=== PATIENT | female | born 1960 | race Caucasian/White ===

== ENCOUNTER 2018-08-28 17:12 | Observation (INO) | payer BC, SELFPAY ==
[2018-08-28 17:27] VITALS: BP 162/93; PULSE 104; RESP 19; TEMP 38.3; O2SAT 96; BMI 30.7
[2018-08-28 17:31] LABS: Microscopic, Urine URINE MICROSCOPIC (MICROSCOPIC)
--- NOTE | 2018-08-28 17:35 | CT_ITS ---
CT abdomen pelvis w con CLINICAL INDICATION: Right flank pain ITS.REASON: abdomen pain ORDERING PHYSICIAN: Beny Terrazas MD PATIENT AGE: 58 years COMPARISON: 03/21/2007 TECHNIQUE: Axial images obtained with sagittal and coronal reformats. All CT scans at the facility use one or more dose reduction, viz: automated exposure control, ma/kV adjustment per patient size (including targeted exams where dose is matched to indication, i.e. head), or iterative reconstruction technique. PROCEDURE: Oral Contrast: None IV Contrast: 75 mL Omnipaque 350. FINDINGS: There are stable noncalcified nodules in the lung bases. The liver, gallbladder, pancreas, adrenal glands, and kidneys have an unremarkable appearance. No renal or ureteral calculi. No hydronephrosis. There are multiple isodense lesions of the spleen measuring up to 2 cm. Some of these were present on the previous exam. There is a small hiatal hernia. No intestinal obstruction or free air. No evidence of appendicitis. There is colonic diverticulosis no evidence of diverticulitis. There has been a prior hysterectomy. No acute bony anomalies. There is a small right inguinal hernia containing fat. IMPRESSION: 1. No acute finding. 2. Colonic diverticulosis. No evidence of diverticulitis. 3. Multiple isodense splenic lesions. Differential diagnosis would include lymphangiomas, hemangiomas, or metastasis.
[2018-08-28 17:41] LABS: Appearance,Urine CLEAR (Clear); Bilirubin,Urine Negative (Negative); Blood, Urine Negative (Negative); Color,Urine YELLOW (Yellow); Glucose,Urine (UA) Negative (Negative); Ketones,Urine Negative (Negative); Leukocyte Esterase,Urine Negative (Negative); Nitrate,Urine Negative (Negative); PH,Urine 6.5 (5.0-8.5); Protein,Urine Negative (Negative); Urobilinogen,Urine 0.2 EU/dl (0.2)
[2018-08-28 17:49] LABS: Bacteria,Urine Trace /lpf; Squamous Epithelial Cell,Urine Occasional #/hpf (0-5); WBC,Urine Occasional #/hpf (0-3)
[2018-08-28 17:50] VITALS: BP 160/88; PULSE 102; O2SAT 97
[2018-08-28 18:20] LABS: Basophils % 0.5 % (0.1-2.0); Eosinophils % 0.6 % (0.1-12.0); Hematocrit 38.8 % (37.0-47.0); Hemoglobin 13.2 g/dL (12.2-16.2); Lymphocytes # 0.3 K/mm3 (0.7-4.5); Lymphocytes % 11.5 % (10-50); Mean Corpuscular HGB Conc 34.1 g/dL (31.8-35.4); Mean Corpuscular Volume 88.1 fl (81-99); Mean Platelet Volume 7.4 fl (7.4-10.4); Monocytes # 0.2 K/mm3 (0.1-1.0); Monocytes % 5.7 % (1.7-9.3); Neutrophils # 2.3 K/mm3 (1.8-7.8); Neutrophils % 81.7 % (37.0-80.0); Platelet Count 114 K/mm3 (142-424); Red Cell Distribution Width 13.8 % (11.5-17.5); White Blood Count 2.8 K/mm3 (4.8-10.8)
--- NOTE | 2018-08-28 18:29 | HMH.EDGENADL ---
ED Disposition Clinical Impression: Right lower quadrant abdominal pain, Splenic lesion, Splenomegaly, Cytopenia Disposition: Admitted as Observation Condition on Discharge: Fair Referrals: Terrie Nguyen APRN [Primary Care Provider] - - Critical Care Critical Care Time: No Attestation: On 08/28/18, the high probability of a clinically significant, sudden or life threatening deterioration of the following system(s) required my full and direct attention, intervention and personal management. The time I documented below is in addition to time spent performing reported procedures but includes the following listed in this critical care notation. Medical Decision Making - Brendan Inquiry Pt receiving controlled substance: No Vital Signs: 08/28/18 17:27 08/28/18 17:50 Temperature 100.9 F H Temperature Source Oral Pulse Rate [Left Radial] 104 H 102 H Respiratory Rate 19 Blood Pressure [Right Arm] 162/93 H 160/88 H Blood Pressure Mean [Right Arm] 116 112 Blood Pressure Source [Right Arm] Automatic Cuff Automatic Cuff Blood Pressure Position [Right Arm] Sitting Sitting 02 Sat by Pulse Oximetry 96 97 Oxygen Delivery Method Room Air - Lab Data Lab Results 08/28/18 17:28: Urine Color Yellow, Urine Appearance Clear, Urine pH 6.5, Ur Specific [place] 1.020, Urine Protein Negative, Urine Glucose (UA) Negative, Urine Ketones Negative, Urine Blood Negative, Urine Nitrate Negative, Urine Bilirubin Negative, Urine Urobilinogen 0.2, Ur Leukocyte Esterase Negative, Urine WBC Occasional, Ur Squamous Epith Cells Occasional, Urine Bacteria Trace 08/28/18 18:00: WBC 2.8 L, RBC 4.40, Hgb 13.2, Hct 38.8, MCV 88.1, MCH 30.0, MCHC 34.1, RDW 13.8, Plt Count 114 L, MPV 7.4, Neut % (Auto) 81.7 H, Lymph % (Auto) 11.5, [place] % (Auto) 5.7, Eos % (Auto) 0.6, Baso % (Auto) 0.5, Neut # (Auto) 2.3, Lymph # (Auto) 0.3 L, [place] # (Auto) 0.2, Eos # (Auto) 0.0, Baso # (Auto) 0.0 08/28/18 18:00: Sodium 140, Potassium 3.6, Chloride 106, Carbon Dioxide 26, Anion Gap 11.6, BUN 26 H, Creatinine 0.97, Estimated Creat Clear 84, Estimated GFR 59, Est GFR ( Amer) 71, Glucose 111 H, Calcium 8.5, Total Bilirubin 0.5, AST 14 L, ALT 28, Alkaline Phosphatase 80, Total Protein 7.5, Albumin 3.5, Globulin 4.0 H, Albumin/Globulin Ratio 0.9 L, Amylase 39, Lipase 122 08/28/18 18:30: Lactate 0.9 Result diagrams: 08/28/18 18:00 08/28/18 18:00 Orders (Tests/Meds): ED MEDICATIONS Generic Name Dose Route Start Last Admin Trade Name Freq PRN Reason Stop Dose Admin Sodium Chloride 1,000 mls @ 999 mls/hr 08/28/18 17:45 08/28/18 18:01 Sod Chlor 0.9% 1000ml Bag IV 08/28/18 18:45 999 mls/hr .[id number] LIAM Administration Discontinued Medications Generic Name Dose Route Start Last Admin Trade Name Freq PRN Reason Stop Dose Admin Acetaminophen 650 mg 08/28/18 17:37 08/28/18 18:01 Acetaminophen 325mg Tab PO 08/28/18 17:38 650 mg ONCE ONE Administration Ioversol 75 ml 08/28/18 18:54 08/28/18 18:55 Rad-Optiray 350 100ml Vial IV 08/28/18 18:55 75 ml ONCE ONE Administration Protocol Ketorolac Tromethamine 30 mg 08/28/18 17:36 08/28/18 18:01 Toradol 30mg/Ml Vial IV 08/28/18 17:37 30 mg ONCE ONE Administration Ondansetron HCl 4 mg 08/28/18 17:37 08/28/18 18:01 Zofran 4mg/2ml Vial IV 08/28/18 17:38 4 mg ONCE ONE Administration Sodium Chloride 10 ml 08/28/18 18:54 08/28/18 18:55 Rad-Saline Flush 10ml Syringe IV 08/28/18 18:55 10 ml ONCE ONE Administration ORDERS Category Date Time Status CT abdomen pelvis w con Stat Cat Scan 08/28/18 17:35 Taken Peripheral Smear Review Routine Lab 08/28/18 18:00 Received Blood Culture Stat Micro 08/28/18 17:41 Received - CT Data CT Scan: Abdomen, Pelvis Time Received: 19:[address] Reviewed: Yes: I have viewed the radiologist's interpretation Findings Narrative: CT scan interpreted by [facility] radiologist. Faxed report received and reviewed: Th
[2018-08-28 18:31] LABS: Alanine Aminotransferase 28 U/L (12-78); Albumin Level 3.5 gm/dL (3.4-5.0); Albumin/Globulin Ratio 0.9 (1.1-1.8); Alkaline Phosphatase 80 U/L (46-116); Amylase 39 U/L (25-115); Anion Gap 11.6 mEq/L (5-15); Aspartate Amino Transferase 14 U/L (15-37); Bilirubin,Total 0.5 mg/dL (0.2-1.0); Blood Urea Nitrogen 26 mg/dL (7-18); Calcium 8.5 mg/dL (8.5-10.1); Carbon Dioxide 26 mmol/L (21.0-32.0); Chloride 106 mmol/L (98-107); Creatinine Clearance Estimated 84 mL/min (50-200); Creatinine,Serum 0.97 mg/dL (0.55-1.02); Estimated Glomerular Filt Rate 59 ml/min (>60); GFR (African American) 71 ML/MIN (>60); Glucose 111 mg/dL (74-106); Lipase 122 u/L (73-393); Potassium 3.6 mmoL/L (3.5-5.1); Sodium 140 mmol/L (136-145); Total Protein,Serum 7.5 gm/dL (6.4-8.2)
[2018-08-28 18:53] LABS: Lactic Acid 0.9 mmol/L (0.4-2.0)
--- NOTE | 2018-08-28 19:27 | PC.NURSE ---
Dr Cannon paged
--- NOTE | 2018-08-28 19:29 | PC.NURSE ---
on phone with Kassandra
[2018-08-28 20:30] VITALS: BP 154/82; PULSE 98; RESP 19; O2SAT 97
--- NOTE | 2018-08-28 20:51 | HMH.GSHP ---
[facility] History Medical History: Denies:: Diabetes Mellitus Type 1, Diabetes Mellitus Type 2 - *Social History Alcohol Intake: current Alcohol Intake Frequency:: holidays/special occasions only *Occupational Status:: employed *Travel in the last 8 weeks: None - Psychiatric History Expresses thoughts of harming self/others: None Suicide Plan Description: No Plan Meds Home Medications Medication Instructions Recorded Confirmed Type Estrogens, Conjugated [Premarin] 0.625 mg PO DAILY 08/28/18 08/28/18 History Meloxicam 7.5 mg PO DAILY 08/28/18 08/28/18 History Tizanidine HCl [Tizanidine HCl 2 mg PO DAILY PRN 08/28/18 08/28/18 History 2mg] buPROPion HCl [Wellbutrin SR 150mg 150 mg PO DAILY 08/28/18 08/28/18 History Tablet] Allergies Allergy/AdvReac Type Severity Reaction Status Date / Time No Known Allergies Allergy Unverified 04/03/17 14:23 Exam Vital signs and Labs for Last 24 Hours: Temp Pulse Resp BP Pulse Ox 100.9 F H 102 H 19 160/88 H 97 08/28/18 17:27 08/28/18 17:50 08/28/18 17:27 08/28/18 17:50 08/28/18 17:50 Laboratory Results - last 24 hr 08/28/18 17:28: Urine Color Yellow, Urine Appearance Clear, Urine pH 6.5, Ur Specific [place] 1.020, Urine Protein Negative, Urine Glucose (UA) Negative, Urine Ketones Negative, Urine Blood Negative, Urine Nitrate Negative, Urine Bilirubin Negative, Urine Urobilinogen 0.2, Ur Leukocyte Esterase Negative, Urine WBC Occasional, Ur Squamous Epith Cells Occasional, Urine Bacteria Trace 08/28/18 18:00: WBC 2.8 L, RBC 4.40, Hgb 13.2, Hct 38.8, MCV 88.1, MCH 30.0, MCHC 34.1, RDW 13.8, Plt Count 114 L, MPV 7.4, Neut % (Auto) 81.7 H, Lymph % (Auto) 11.5, [place] % (Auto) 5.7, Eos % (Auto) 0.6, Baso % (Auto) 0.5, Neut # (Auto) 2.3, Lymph # (Auto) 0.3 L, [place] # (Auto) 0.2, Eos # (Auto) 0.0, Baso # (Auto) 0.0 08/28/18 18:00: Sodium 140, Potassium 3.6, Chloride 106, Carbon Dioxide 26, Anion Gap 11.6, BUN 26 H, Creatinine 0.97, Estimated Creat Clear 84, Estimated GFR 59, Est GFR ( Amer) 71, Glucose 111 H, Calcium 8.5, Total Bilirubin 0.5, AST 14 L, ALT 28, Alkaline Phosphatase 80, Total Protein 7.5, Albumin 3.5, Globulin 4.0 H, Albumin/Globulin Ratio 0.9 L, Amylase 39, Lipase 122 08/28/18 18:30: Lactate 0.9 I & O for Last 24 hours: Intake & Output 08/26/18 08/27/18 08/28/18 08/29/18 11:59 11:59 11:59 11:59 Weight 190 lb Results - Results Lab Results Last 24 Hours:: Laboratory Results - last 24 hr 08/28/18 17:28: Urine Color Yellow, Urine Appearance Clear, Urine pH 6.5, Ur Specific [place] 1.020, Urine Protein Negative, Urine Glucose (UA) Negative, Urine Ketones Negative, Urine Blood Negative, Urine Nitrate Negative, Urine Bilirubin Negative, Urine Urobilinogen 0.2, Ur Leukocyte Esterase Negative, Urine WBC Occasional, Ur Squamous Epith Cells Occasional, Urine Bacteria Trace 08/28/18 18:00: WBC 2.8 L, RBC 4.40, Hgb 13.2, Hct 38.8, MCV 88.1, MCH 30.0, MCHC 34.1, RDW 13.8, Plt Count 114 L, MPV 7.4, Neut % (Auto) 81.7 H, Lymph % (Auto) 11.5, [place] % (Auto) 5.7, Eos % (Auto) 0.6, Baso % (Auto) 0.5, Neut # (Auto) 2.3, Lymph # (Auto) 0.3 L, [place] # (Auto) 0.2, Eos # (Auto) 0.0, Baso # (Auto) 0.0 08/28/18 18:00: Sodium 140, Potassium 3.6, Chloride 106, Carbon Dioxide 26, Anion Gap 11.6, BUN 26 H, Creatinine 0.97, Estimated Creat Clear 84, Estimated GFR 59, Est GFR ( Amer) 71, Glucose 111 H, Calcium 8.5, Total Bilirubin 0.5, AST 14 L, ALT 28, Alkaline Phosphatase 80, Total Protein 7.5, Albumin 3.5, Globulin 4.0 H, Albumin/Globulin Ratio 0.9 L, Amylase 39, Lipase 122 08/28/18 18:30: Lactate 0.9
--- NOTE | 2018-08-28 21:00 | PC.NURSE ---
Allran in room with pt
--- NOTE | 2018-08-28 21:00 | PC.NURSE ---
dr. mendez at pt bedside at this time
[2018-08-28 21:04] VITALS: BP 147/97; PULSE 94; RESP 20; TEMP 36.8; O2SAT 98
--- NOTE | 2018-08-28 21:09 | HMH.GSCON ---
*Admission Date: 08/28/18 *Chief complaint: Abdominal pain *History of present illness: Patient is a pleasant 58-year-old white female who had presented to the emergency department with some abdominal pain. She states that Sunday evening on 08/25/2018 she had some pain in the right lower quadrant and right pelvic area. She has had some symptoms of low-grade fever. She is also had some chills and flushing. The pain has been intermittent however. She states that she has had a normal appetite but has had some exacerbation of the pain after eating. She denies any diarrhea. Denies vomiting. She had presented to the emergency department today with the symptoms. Interestingly she was found to have a white blood cell count of 2.8K. She underwent CT scan with intravenous contrast which was equivocal for appendicitis with nonvisualization of the appendix but no evidence of any inflammation or acute changes in the right lower quadrant. She did have some splenic lesions and splenomegaly noted. Review of Systems - Review of Systems Review of systems:: pertinent systems reviewed and negative unless documented below [facility] History Medical History: Denies:: Diabetes Mellitus Type 1, Diabetes Mellitus Type 2 *Have you ever received a pneumonia vaccine?: No *Have you received a flu vaccine this season?: No - *Social History Alcohol Intake: current Alcohol Intake Frequency:: holidays/special occasions only *Occupational Status:: employed *Travel in the last 8 weeks: None - Psychiatric History Expresses thoughts of harming self/others: None Suicide Plan Description: No Plan Family Hx:: Non-contributory Meds Home Medications Medication Instructions Recorded Confirmed Type Estrogens, Conjugated [Premarin] 0.625 mg PO DAILY 08/28/18 08/28/18 History Meloxicam 7.5 mg PO DAILY 08/28/18 08/28/18 History Tizanidine HCl [Tizanidine HCl 2 mg PO DAILY PRN 08/28/18 08/28/18 History 2mg] buPROPion HCl [Wellbutrin SR 150mg 150 mg PO DAILY 08/28/18 08/28/18 History Tablet] Allergies Allergy/AdvReac Type Severity Reaction Status Date / Time No Known Allergies Allergy Unverified 04/03/17 14:23 Exam Vital signs and Labs for Last 24 Hours: Temp Pulse Resp BP Pulse Ox 98.2 F 94 H 20 147/97 H 97 08/28/18 21:04 08/28/18 21:04 08/28/18 21:04 08/28/18 21:04 08/28/18 20:30 Laboratory Results - last 24 hr 08/28/18 17:28: Urine Color Yellow, Urine Appearance Clear, Urine pH 6.5, Ur Specific [place] 1.020, Urine Protein Negative, Urine Glucose (UA) Negative, Urine Ketones Negative, Urine Blood Negative, Urine Nitrate Negative, Urine Bilirubin Negative, Urine Urobilinogen 0.2, Ur Leukocyte Esterase Negative, Urine WBC Occasional, Ur Squamous Epith Cells Occasional, Urine Bacteria Trace 08/28/18 18:00: WBC 2.8 L, RBC 4.40, Hgb 13.2, Hct 38.8, MCV 88.1, MCH 30.0, MCHC 34.1, RDW 13.8, Plt Count 114 L, MPV 7.4, Neut % (Auto) 81.7 H, Lymph % (Auto) 11.5, [place] % (Auto) 5.7, Eos % (Auto) 0.6, Baso % (Auto) 0.5, Neut # (Auto) 2.3, Lymph # (Auto) 0.3 L, [place] # (Auto) 0.2, Eos # (Auto) 0.0, Baso # (Auto) 0.0 08/28/18 18:00: Sodium 140, Potassium 3.6, Chloride 106, Carbon Dioxide 26, Anion Gap 11.6, BUN 26 H, Creatinine 0.97, Estimated Creat Clear 84, Estimated GFR 59, Est GFR ( Amer) 71, Glucose 111 H, Calcium 8.5, Total Bilirubin 0.5, AST 14 L, ALT 28, Alkaline Phosphatase 80, Total Protein 7.5, Albumin 3.5, Globulin 4.0 H, Albumin/Globulin Ratio 0.9 L, Amylase 39, Lipase 122 08/28/18 18:30: Lactate 0.9 I & O for Last 24 hours: Intake & Output 08/26/18 08/27/18 08/28/18 08/29/18 11:59 11:59 11:59 11:59 Weight 190 lb - *Routine HEENT Exam Head: Present: normocephalic Eye: Present: EOMI, PERRL ENT: Present: mucous membranes moist - *Routine Neck Exam Present: supple. Absent: lymphadenopathy - *Routine Respiratory Exam Present: CTA bilaterally - *Routine Cardiovascular Exam Present: RRR - *Routine Abdomi
--- NOTE | 2018-08-28 21:10 | PC.NURSE ---
Notified nurse that is taking pt on floor that she can have clears until midnight then she is to be NPO for possible appy.
--- NOTE | 2018-08-28 21:13 | P.CONS_ITS ---
*Admission Date: 08/28/18 *Chief complaint: Abdominal pain *History of present illness: Patient is a pleasant 58-year-old white female who had presented to the emergency department with some abdominal pain. She states that Sunday evening on 08/25/2018 she had some pain in the right lower quadrant and right pelvic area. She has had some symptoms of low-grade fever. She is also had some chills and flushing. The pain has been intermittent however. She states that she has had a normal appetite but has had some exacerbation of the pain after eating. She denies any diarrhea. Denies vomiting. She had presented to the emergency department today with the symptoms. Interestingly she was found to have a white blood cell count of 2.8K. She underwent CT scan with intravenous contrast which was equivocal for appendicitis with nonvisualization of the appendix but no evidence of any inflammation or acute changes in the right lower quadrant. She did have some splenic lesions and splenomegaly noted. Review of Systems - Review of Systems Review of systems:: pertinent systems reviewed and negative unless documented below [facility] History Medical History: Denies:: Diabetes Mellitus Type 1, Diabetes Mellitus Type 2 *Have you ever received a pneumonia vaccine?: No *Have you received a flu vaccine this season?: No - *Social History Alcohol Intake: current Alcohol Intake Frequency:: holidays/special occasions only *Occupational Status:: employed *Travel in the last 8 weeks: None - Psychiatric History Expresses thoughts of harming self/others: None Suicide Plan Description: No Plan Family Hx:: Non-contributory Meds Home Medications Medication Instructions Recorded Confirmed Type Estrogens, Conjugated [Premarin] 0.625 mg PO DAILY 08/28/18 08/28/18 History Meloxicam 7.5 mg PO DAILY 08/28/18 08/28/18 History Tizanidine HCl [Tizanidine HCl 2 mg PO DAILY PRN 08/28/18 08/28/18 History 2mg] buPROPion HCl [Wellbutrin SR 150mg 150 mg PO DAILY 08/28/18 08/28/18 History Tablet] Allergies Allergy/AdvReac Type Severity Reaction Status Date / Time No Known Allergies Allergy Unverified 04/03/17 14:23 Exam Vital signs and Labs for Last 24 Hours: Temp Pulse Resp BP Pulse Ox 98.2 F 94 H 20 147/97 H 97 08/28/18 21:04 08/28/18 21:04 08/28/18 21:04 08/28/18 21:04 08/28/18 20:30 Laboratory Results - last 24 hr 08/28/18 17:28: Urine Color Yellow, Urine Appearance Clear, Urine pH 6.5, Ur Specific [place] 1.020, Urine Protein Negative, Urine Glucose (UA) Negative, Urine Ketones Negative, Urine Blood Negative, Urine Nitrate Negative, Urine Bilirubin Negative, Urine Urobilinogen 0.2, Ur Leukocyte Esterase Negative, Urine WBC Occasional, Ur Squamous Epith Cells Occasional, Urine Bacteria Trace 08/28/18 18:00: WBC 2.8 L, RBC 4.40, Hgb 13.2, Hct 38.8, MCV 88.1, MCH 30.0, MCHC 34.1, RDW 13.8, Plt Count 114 L, MPV 7.4, Neut % (Auto) 81.7 H, Lymph % (Auto) 11.5, [place] % (Auto) 5.7, Eos % (Auto) 0.6, Baso % (Auto) 0.5, Neut # (Auto) 2.3, Lymph # (Auto) 0.3 L, [place] # (Auto) 0.2, Eos # (Auto) 0.0, Baso # (Auto) 0.0 08/28/18 18:00: Sodium 140, Potassium 3.6, Chloride 106, Carbon Dioxide 26, Anion Gap 11.6, BUN 26 H, Creatinine 0.97, Estimated Creat Clear 84, Estimated GFR 59, Est GFR ( Amer) 71, Glucose 111 H, Calcium 8.5, Total Bilirubin 0.5, AST 14 L, ALT 28, Alkaline Phosphatase 80, Total Pro
[2018-08-28 21:37] VITALS: BP 158/99; PULSE 88; RESP 16; TEMP 36.8; O2SAT 99
[2018-08-28 22:10] VITALS: O2SAT 99
--- NOTE | 2018-08-28 22:34 | PC.NURSE ---
Pt transported to floor via wheelchair by [facility] staff, arriving @ 2125. Is A&O x3. Independent w/ care and ambulates independently w/ no safety concerns. PT does report that she has fallen in the past d/t numbness in (L) leg that is chronic and is encouraged to call out for assistance when ambulating or getting out of bed, pt has verbalized understanding. Upon assessment lungs CTA. Remains on room air w/ no s/s of resp distress. No cough noted. Abdomen soft, tender w/ active bowel sounds in all quads. Nausea w/o vomiting reported. Has tolerated clear liquid diet, receiving water and bradley-ani per pt request. Pt will be NPO after midnight per MD orders, pt is aware. 2 + pedal pulses noted. Cap refill <3 sec. Pt refuses TEDS at this time, but states she may wear them at a later time. TEDS available at bedside. No c/o pain at this time. Pt was medicated w/ 650 mg tylenol for a headache. #20 RAC w/ NS @ 100 mls/hr. VSS. Will continue to monitor.
[2018-08-29 03:24] VITALS: BMI 28.2
[2018-08-29 04:09] VITALS: BP 151/89; PULSE 85; RESP 18; TEMP 37.7; O2SAT 99
[2018-08-29 07:23] LABS: Basophils % 0.4 % (0.1-2.0); Eosinophils % 0.6 % (0.1-12.0); Hematocrit 34.2 % (37.0-47.0); Hemoglobin 12.1 g/dL (12.2-16.2); Lymphocytes # 0.4 K/mm3 (0.7-4.5); Mean Corpuscular HGB Conc 35.5 g/dL (31.8-35.4); Mean Corpuscular Hemoglobin 30.8 pg (27.0-31.2); Mean Corpuscular Volume 86.8 fl (81-99); Mean Platelet Volume 7.4 fl (7.4-10.4); Monocytes # 0.1 K/mm3 (0.1-1.0); Monocytes % 5.2 % (1.7-9.3); Neutrophils # 2.1 K/mm3 (1.8-7.8); Neutrophils % 79.9 % (37.0-80.0); Platelet Count 91 K/mm3 (142-424); Red Blood Count 3.94 M/mm3 (4.20-5.40); Red Cell Distribution Width 13.7 % (11.5-17.5); White Blood Count 2.7 K/mm3 (4.8-10.8)
--- NOTE | 2018-08-29 07:31 | CT_ITS ---
CT abdomen pelvis w con CLINICAL INDICATION: Persistent right lower quadrant pain ITS.REASON: PERSISTENT RLQ PAIN ORDERING PHYSICIAN: Kaleb Mckeon MD PATIENT AGE: 58 years COMPARISON: 08/28/2018 TECHNIQUE: Axial images obtained with sagittal and coronal reformats. All CT scans at the facility use one or more dose reduction, viz: automated exposure control, ma/kV adjustment per patient size (including targeted exams where dose is matched to indication, i.e. head), or iterative reconstruction technique. PROCEDURE: Oral Contrast: Gastroview IV Contrast: 75 mL Omnipaque 350. FINDINGS: There are atelectatic changes in the lung bases. Nodular opacities in the lung bases once again noted unchanged. The liver, gallbladder, adrenal glands, pancreas, and kidneys have an unremarkable appearance. No renal or ureteral calculi. No hydronephrosis. There is mild splenomegaly with multiple hypoattenuating lesions of the spleen the largest in the spleen anteriorly at 2.3 cm. The appendix is visualized and is small and has an unremarkable appearance. No intestinal obstruction or free air there is extensive diverticulosis of the sigmoid colon with mild thickening of the sigmoid colon which may be related to muscular hypertrophy. No evidence of diverticulitis. No abscess or free air. No acute bony findings. IMPRESSION: 1. No acute finding. 2. No evidence of appendicitis. The appendix is visualized and is small 3. Diverticulosis of the sigmoid colon with mild thickening of the sigmoid colon which could be due nondistention with muscular hypertrophy or colitis. No evidence of diverticulitis 4. Multiple hypoattenuating lesions of the spleen. These have been present dating back to 03/21/2007. They do appear more numerous on today's exam. Differential diagnosis would include hemangiomas, lymphangiomas, or metastatic disease
--- NOTE | 2018-08-29 07:33 | P.PN_ITS ---
Subjective Narrative: Patient still with some right lower quadrant discomfort. Worse when lying on right side. Exam Vital signs and Labs for Last 24 Hours: Temp Pulse Resp BP Pulse Ox 99.8 F H 85 18 151/89 H 99 08/29/18 04:09 08/29/18 04:09 08/29/18 04:09 08/29/18 04:08/29/18 04:09 Laboratory Results - last 24 hr 08/28/18 17:28: Urine Color Yellow, Urine Appearance Clear, Urine pH 6.5, Ur Specific [place] 1.020, Urine Protein Negative, Urine Glucose (UA) Negative, Urine Ketones Negative, Urine Blood Negative, Urine Nitrate Negative, Urine Bilirubin Negative, Urine Urobilinogen 0.2, Ur Leukocyte Esterase Negative, Urine WBC Occasional, Ur Squamous Epith Cells Occasional, Urine Bacteria Trace 08/28/18 18:00: WBC 2.8 L, RBC 4.40, Hgb 13.2, Hct 38.8, MCV 88.1, MCH 30.0, MCHC 34.1, RDW 13.8, Plt Count 114 L, MPV 7.4, Neut % (Auto) 81.7 H, Lymph % (Auto) 11.5, [place] % (Auto) 5.7, Eos % (Auto) 0.6, Baso % (Auto) 0.5, Neut # (Auto) 2.3, Lymph # (Auto) 0.3 L, [place] # (Auto) 0.2, Eos # (Auto) 0.0, Baso # (Auto) 0.0 08/28/18 18:00: Sodium 140, Potassium 3.6, Chloride 106, Carbon Dioxide 26, Anion Gap 11.6, BUN 26 H, Creatinine 0.97, Estimated Creat Clear 84, Estimated GFR 59, Est GFR ( Amer) 71, Glucose 111 H, Calcium 8.5, Total Bilirubin 0.5, AST 14 L, ALT 28, Alkaline Phosphatase 80, Total Protein 7.5, Albumin 3.5, Globulin 4.0 H, Albumin/Globulin Ratio 0.9 L, Amylase 39, Lipase 122 08/28/18 18:30: Lactate 0.9 I & O for Last 24 hours: Intake & Output 08/26/18 08/27/18 08/28/18 08/29/18 11:59 11:59 11:59 11:59 Intake Total 1011 / 1011 Balance 1010 / 1011 Weight 175 lb - *Routine Abdominal Exam Present: tenderness Comments: Tender in the right lower quadrant without guarding or rebound. Progress Note: A&P Assessment and Plan for All Diagnoses:: Due to the equivocal findings plan for CT scan with oral and IV contrast.
--- NOTE | 2018-08-29 07:37 | P.CONPHA_ITS ---
[facility] VTE Monitoring - Patient Demographics Admission date: 08/28/18 Report Date: 08/29/18 Time: 07:37 Allergies/Adverse Reactions: Patient Allergies No Known Allergies Allergy (Unverified 04/03/17 14:23) Height: 1.68 m Weight: 79.379 kg Patient Problems: Current Active Problems (Updated 08/28/18 @ 20:40 by Beny Terrazas MD) Right lower quadrant abdominal pain (Acute) Splenic lesion (Acute) Splenomegaly (Acute) Cytopenia (Acute) - VTE Risk Labs: VTE Related Lab Results Hgb 13.2 g/dL (12.2-16.2) 08/28/18 18:00 Hct 38.8 % (37.0-47.0) 08/28/18 18:00 Plt Count 114 K/mm3 (142-424) L 08/28/18 18:00 BUN 26 mg/dL (7-18) H 08/28/18 18:00 Creatinine 0.97 mg/dL (0.55-1.02) 08/28/18 18:00 Estimated Creat Clear 84 mL/min (50-200) 08/28/18 18:00 Was VTE Risk Assessment Performed: Yes VTE Score: 5 VTE Risk Level: Low Risk - Prophylaxis VTE Prophylaxis Ordered?: Yes Types of VTE Prophylaxis: TEDS Knee High Location of Applied Device: Bilateral Lower Extremeties - VTE Diagnosis Confirmed Treatment or plan recommended: Continue Current Treatment
[2018-08-29 08:00] VITALS: BP 153/98; PULSE 73; RESP 16; TEMP 36.4; O2SAT 97
--- NOTE | 2018-08-29 08:00 | PC.NURSE ---
PO contrast in at this time. Rad notified.
[2018-08-29 09:00] VITALS: O2SAT 97
--- NOTE | 2018-08-29 09:56 | HMH.HP ---
*Admission Date: 08/28/18 *Chief complaint: RLQ pain *History of present illness: 58 year old female with no significant medical history presented to the ED with RLQ pain that has increased in intensity over the last 4 days. Reports nausea, no vomiting or diarrhea. No fevers, but has had some chills. Denies urinary symptoms. No recent illnesses. She is UTD on mammogram and had a colonoscopy approx 4 years ago with polyps removed, but they were nothing. Denies rectal bleeding. In the ED she was found to have leukopenia at 2.8 and thrombocytopenia at 114 which is a new issue for her. 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 Patient was admitted for surgery and hematology consults and further evaluation. Today, patient reports persistent RLQ pain that worsens when she lays on her right side. + nausea, denies vomiting or diarrhea. Prior to this week she has felt well with no constitutional or hematological symptoms. She has a 1st cousin with blood cancer otherwise no significant family history. [facility] History I have reviewed the patient's past medical history: Yes Medical History: Denies:: Diabetes Mellitus Type 1, Diabetes Mellitus Type 2 *Have you ever received a pneumonia vaccine?: No *Have you received a flu vaccine this season?: Yes Other Surgeries: Yes: Hysterectomy-Partial ( THEY LEFT AN OVARY. ) - *Social History Educational Level: Completed College Smoking Status: Former smoker Tobacco Type: cigarettes # Packs/Day (cigarettes): 1 #Yrs smoked (if former smoker): 4 Alcohol Intake: never Alcohol Intake Frequency:: holidays/special occasions only *Occupational Status:: employed Housing: house Household Members: spouse *Travel in the last 8 weeks: Inside the [facility] - Psychiatric History Expresses thoughts of harming self/others: None Suicide Plan Description: No Plan Family Hx:: Non-contributory Review of Systems - Review of Systems Review of systems:: pertinent systems reviewed and negative unless documented below - *Gastrointestinal Reports abdominal pain, Reports nausea Meds Home Medications Medication Instructions Recorded Confirmed Type Estrogens, Conjugated [Premarin] 0.625 mg PO DAILY 08/28/18 08/28/18 History Meloxicam 7.5 mg PO DAILY 08/28/18 08/28/18 History Tizanidine HCl [Tizanidine HCl 2 mg PO DAILY PRN 08/28/18 08/28/18 History 2mg] buPROPion HCl [Wellbutrin SR 150mg 150 mg PO DAILY 08/28/18 08/28/18 History Tablet] Allergies Allergy/AdvReac Type Severity Reaction Status Date / Time No Known Allergies Allergy Unverified 04/03/17 14:23 Exam Vital signs and Labs for Last 24 Hours: Temp Pulse Resp BP Pulse Ox 97.6 F 73 16 153/98 H 97 08/29/18 08:00 08/29/18 08:00 08/29/18 08:00 08/29/18 08:00 08/29/18 08:00 Laboratory Results - last 24 hr 08/28/18 17:28: Urine Color Yellow, Urine Appearance Clear, Urine pH 6.5, Ur Specific [place] 1.020, Urine Protein Negative, Urine Glucose (UA) Negative, Urine Ketones Negative, Urine Blood Negative, Urine Nitrate Negative, Urine Bilirubin Negative, Urine Urobilinogen 0.2, Ur Leukocyte Esterase Negative, Urine WBC Occasional, Ur Squamous Epith Cells Occasional, Urine Bacteria Trace 08/28/18 18:00: WBC 2.8 L, RBC 4.40, Hgb 13.2, Hct 38.8, MCV 88.1, MCH 30.0, MCHC 34.1, RDW 13.8, Plt Count 114 L, MPV 7.4, Neut % (Auto) 81.7 H, Lymph % (Auto) 11.5, [place] % (Auto) 5.7, Eos % (Auto) 0.6, Baso % (Auto) 0.5, Neut # (Auto) 2.3, Lymph # (Auto) 0.3 L, [place] # (Auto) 0.2, Eos # (Auto) 0.0, Baso # (Auto) 0.0 08/28/18 18:00: Sodium 140, Potassium 3.6, Chloride 106, Carbon Dioxide 26, Anion Gap 11.6, BUN 26 H, Creatinine 0.97, Estimated Creat Clear 84, Estimated GFR 59, Est GFR ( Amer) 71, Glucose 111 H, Calcium 8.5, Total Bilirubin 0.5, AST 14 L, ALT 28, Alkaline Phosphatase 80, Total Protein 7.5, Albumin 3.5, Globulin 4.0 H, Albumin/Globulin Ratio 0.9 L, Amylase 39, Lipase 122 08/28/18 18:30: Lactate 0.9 05/16/19
--- NOTE | 2018-08-29 09:59 | P.HP_ITS ---
*Admission Date: 08/28/18 *Chief complaint: RLQ pain *History of present illness: 58 year old female with no significant medical history presented to the ED with RLQ pain that has increased in intensity over the last 4 days. Reports nausea, no vomiting or diarrhea. No fevers, but has had some chills. Denies urinary symptoms. No recent illnesses. She is UTD on mammogram and had a colonoscopy approx 4 years ago with polyps removed, but they were nothing. Denies rectal bleeding. In the ED she was found to have leukopenia at 2.8 and thrombocytopenia at 114 which is a new issue for her. 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 Patient was admitted for surgery and hematology consults and further evaluation. Today, patient reports persistent RLQ pain that worsens when she lays on her right side. + nausea, denies vomiting or diarrhea. Prior to this week she has felt well with no constitutional or hematological symptoms. She has a 1st cousin with blood cancer otherwise no significant family history. [facility] History I have reviewed the patient's past medical history: Yes Medical History: Denies:: Diabetes Mellitus Type 1, Diabetes Mellitus Type 2 *Have you ever received a pneumonia vaccine?: No *Have you received a flu vaccine this season?: Yes Other Surgeries: Yes: Hysterectomy-Partial ( THEY LEFT AN OVARY. ) - *Social History Educational Level: Completed College Smoking Status: Former smoker Tobacco Type: cigarettes # Packs/Day (cigarettes): 1 #Yrs smoked (if former smoker): 4 Alcohol Intake: never Alcohol Intake Frequency:: holidays/special occasions only *Occupational Status:: employed Housing: house Household Members: spouse *Travel in the last 8 weeks: Inside the [facility] - Psychiatric History Expresses thoughts of harming self/others: None Suicide Plan Description: No Plan Family Hx:: Non-contributory Review of Systems - Review of Systems Review of systems:: pertinent systems reviewed and negative unless documented below - *Gastrointestinal Reports abdominal pain, Reports nausea Meds Home Medications Medication Instructions Recorded Confirmed Type Estrogens, Conjugated [Premarin] 0.625 mg PO DAILY 08/28/18 08/28/18 History Meloxicam 7.5 mg PO DAILY 08/28/18 08/28/18 History Tizanidine HCl [Tizanidine HCl 2 mg PO DAILY PRN 08/28/18 08/28/18 History 2mg] buPROPion HCl [Wellbutrin SR 150mg 150 mg PO DAILY 08/28/18 08/28/18 History Tablet] Allergies Allergy/AdvReac Type Severity Reaction Status Date / Time No Known Allergies Allergy Unverified 04/03/17 14:23 Exam Vital signs and Labs for Last 24 Hours: Temp Pulse Resp BP Pulse Ox 97.6 F 73 16 153/98 H 97 08/29/18 08:00 08/29/18 08:00 08/29/18 08:00 08/29/18 08:00 08/29/18 08:00 Laboratory Results - last 24 hr 08/28/18 17:28: Urine Color Yellow, Urine Appearance Clear, Urine pH 6.5, Ur Specific [place] 1.020, Urine Protein Negative, Urine Glucose (UA) Negative, Urine Ketones Negative, Urine Blood Negative, Urine Nitrate Negative, Urine Bilirubin Negative, Urine Urobilinogen 0.2, Ur Leukocyte Esterase Negative, Urine WBC Occasional, Ur Squamous Epith Cells Occasional, Urine Bacteria Trace 08/28/18 18:00: WBC 2.8 L, RBC 4.40, Hgb 13.2, Hct 38.8, MCV 88.1, MCH 30.0, MCHC 34.1, RDW 13.8, Plt Count 114 L, MPV 7.4, Neut % (Auto) 81.7 H, Ly
--- NOTE | 2018-08-29 11:27 | HMH.PHAINT ---
MEDICATION RECONCILIATION COMPLETED ON PATIENT VIA PATIENT INTERVIEW, EXTERNAL FILL HISTORY FROM PHARMACY, AND PHYSICIAN LIST. -AMOL LAGUNA, IDALIAD
--- NOTE | 2018-08-29 11:37 | P.PN_ITS ---
Subjective Patient reports: no new complaints Exam Vital signs and Labs for Last 24 Hours: Temp Pulse Resp BP Pulse Ox 97.6 F 73 16 153/98 H 97 08/29/18 08:00 08/29/18 08:00 08/29/18 08:00 08/29/18 08:00 08/29/18 09:00 Laboratory Results - last 24 hr 08/28/18 17:28: Urine Color Yellow, Urine Appearance Clear, Urine pH 6.5, Ur Specific [place] 1.020, Urine Protein Negative, Urine Glucose (UA) Negative, Urine Ketones Negative, Urine Blood Negative, Urine Nitrate Negative, Urine Bilirubin Negative, Urine Urobilinogen 0.2, Ur Leukocyte Esterase Negative, Urine WBC Occasional, Ur Squamous Epith Cells Occasional, Urine Bacteria Trace 08/28/18 18:00: WBC 2.8 L, RBC 4.40, Hgb 13.2, Hct 38.8, MCV 88.1, MCH 30.0, MCHC 34.1, RDW 13.8, Plt Count 114 L, MPV 7.4, Neut % (Auto) 81.7 H, Lymph % (Auto) 11.5, [place] % (Auto) 5.7, Eos % (Auto) 0.6, Baso % (Auto) 0.5, Neut # (Auto) 2.3, Lymph # (Auto) 0.3 L, [place] # (Auto) 0.2, Eos # (Auto) 0.0, Baso # (Auto) 0.0 08/28/18 18:00: Sodium 140, Potassium 3.6, Chloride 106, Carbon Dioxide 26, Anion Gap 11.6, BUN 26 H, Creatinine 0.97, Estimated Creat Clear 84, Estimated GFR 59, Est GFR ( Amer) 71, Glucose 111 H, Calcium 8.5, Total Bilirubin 0.5, AST 14 L, ALT 28, Alkaline Phosphatase 80, Total Protein 7.5, Albumin 3.5, Globulin 4.0 H, Albumin/Globulin Ratio 0.9 L, Amylase 39, Lipase 122 08/28/18 18:30: Lactate 0.9 08/29/18 06:12: WBC 2.7 L, RBC 3.94 L, Hgb 12.1 L, Hct 34.2 L, MCV 86.8, MCH 30.8, MCHC 35.5 H, RDW 13.7, Plt Count 91 L, MPV 7.4, Neut % (Auto) 79.9, Lymph % (Auto) 14.0, [place] % (Auto) 5.2, Eos % (Auto) 0.6, Baso % (Auto) 0.4, Neut # (Auto) 2.1, Lymph # (Auto) 0.4 L, [place] # (Auto) 0.1, Eos # (Auto) 0.0, Baso # (Auto) 0.0 I & O for Last 24 hours: Intake & Output 08/26/18 08/27/18 08/28/18 08/29/18 11:59 11:59 11:59 11:59 Intake Total 1011 / 1011 Balance 1011 / 1011 Weight 175 lb - *Routine Abdominal Exam Present: soft Progress Note: A&P (1) Cytopenia Status: Acute Current Visit: Yes (2) Right lower quadrant abdominal pain Status: Acute Current Visit: Yes (3) Splenic lesion Status: Acute Current Visit: Yes (4) Splenomegaly Status: Acute Current Visit: Yes Assessment and Plan for All Diagnoses:: Follow-up CT scan with IV and addition of oral contrast reveals visualization of the appendix which is small and normal diameter with filling of the appendix. Unclear as to the etiology of the patient's symptoms and laboratory findings. I will go ahead and start her on a diet. Await hematology consultation input.
--- NOTE | 2018-08-29 14:43 | CT_ITS ---
CT chest w con HISTORY: ITS.REASON: lung nodules follow-up lung nodules ORDERING PHYSICIAN: Kaleb Mckeon MD PATIENT AGE: 58 years COMPARISON: 03/21/2007, 08/28/2018 TECHNIQUE: Axial images obtained following the administration of 75 mL of Optiray 350 . Sagittal, and coronal reformatted images are also generated and reviewed. All CT scans at the facility use one or more dose reduction, viz: automated exposure control, ma/kV adjustment per patient size (including targeted exams where dose is matched to indication, i.e. head), or iterative reconstruction technique. FINDINGS no evidence of aortic aneurysm or dissection. The pericardium is slightly thickened anteriorly nonspecific. No mediastinal or hilar mass. No adenopathy. No evidence of central pulmonary embolus. There are several noncalcified pulmonary nodules including a 3 mm nodule central aspect right upper lobe image 32, 7 mm nodule along the minor fissure anteriorly, 5 mm nodule also along the minor fissure. These nodules are unchanged. There is a a 9 x 4 mm nodule also along the minor fissure. This area is not previously imaged 3 mm nodules present in the right middle lobe laterally unchanged. Subpleural nodules present in the right lower lobe laterally at 6 mm thyroid (on the previous exam. There are some atelectatic changes in the lung bases. There is a 3 mm noncalcified nodule left upper lobe nonspecific. Multiple splenic lesions are once again noted the largest in the anterior aspect of the spleen at 2.4 cm. IMPRESSION: 1. There are multiple noncalcified pulmonary nodules. Some of these are unchanged and some were not imaged previously. There is one new nodules present in the right lung base in the subpleural region laterally. These are probably benign. Six-month follow-up is suggested. 2. Multiple splenic lesions. A hemangiomas, lymphangiomas, neoplasm, or infection could cause this finding.,
--- NOTE | 2018-08-29 15:14 | PC.NURSE ---
relayed to territory sales consultant about radiology reccomending some fluids after. stated she would put in for her to have a bolus when she got back of 1 liter of normal saline
--- NOTE | 2018-08-29 15:17 | PC.NURSE ---
relayed to md about recomentations from radiology for fluids after this dose of contrast. stated they would put something in
[2018-08-29 16:00] VITALS: BP 152/98; PULSE 82; RESP 16; TEMP 36.5; O2SAT 98
--- NOTE | 2018-08-29 16:45 | HMH.CONS ---
*Admission Date: 08/28/18 *History of present illness: 58 yo wf presents to ed last night with rlq abdl pain. ct of abd/pelvis done demonstrating mild splenomegaly with nodules. comparison from 2006 demonstrated similar lesions. of note her wbc and plts were low- wbc 2.6 and plts were 100. reviewed labs from pcp 1 year ago and labs were normal. she had ct of chest demonstrated mostly stable pulm nodules- there was 1 new noted and recommendation is to repeat ct in 6 months. pt reports she has had temp of 100 and has had shaking chills. denies n/v/diarrhea. reports headache today. she would like to go home. [facility] History Medical History: Denies:: Diabetes Mellitus Type 1, Diabetes Mellitus Type 2 *Have you ever received a pneumonia vaccine?: No *Have you received a flu vaccine this season?: Yes Other Surgeries: Yes: Hysterectomy-Partial ( THEY LEFT AN OVARY. ) - *Social History Educational Level: Completed College Smoking Status: Former smoker Tobacco Type: cigarettes # Packs/Day (cigarettes): 1 #Yrs smoked (if former smoker): 4 Alcohol Intake: never Alcohol Intake Frequency:: holidays/special occasions only *Occupational Status:: employed Housing: house Household Members: spouse *Travel in the last 8 weeks: Inside the [place] - Psychiatric History Expresses thoughts of harming self/others: None Suicide Plan Description: No Plan Family Hx:: Non-contributory Meds Home Medications Medication Instructions Recorded Confirmed Type Estrogens, Conjugated [Premarin] 0.625 mg PO DAILY 08/28/18 08/28/18 History Meloxicam 7.5 mg PO DAILYP PRN 08/28/18 08/29/18 History Tizanidine HCl [Tizanidine HCl 2 mg PO HSP PRN 08/28/18 08/29/18 History 2mg] buPROPion HCl [Bupropion Xl] 300 mg PO DAILY 08/29/18 08/29/18 History Allergies Allergy/AdvReac Type Severity Reaction Status Date / Time No Known Allergies Allergy Unverified 04/03/17 14:23 Exam Vital signs and Labs for Last 24 Hours: Temp Pulse Resp BP Pulse Ox 97.6 F 73 16 153/98 H 97 08/29/18 08:00 08/29/18 08:00 08/29/18 08:00 08/29/18 08:00 08/29/18 09:00 Laboratory Results - last 24 hr 08/28/18 17:28: Urine Color Yellow, Urine Appearance Clear, Urine pH 6.5, Ur Specific [place] 1.020, Urine Protein Negative, Urine Glucose (UA) Negative, Urine Ketones Negative, Urine Blood Negative, Urine Nitrate Negative, Urine Bilirubin Negative, Urine Urobilinogen 0.2, Ur Leukocyte Esterase Negative, Urine WBC Occasional, Ur Squamous Epith Cells Occasional, Urine Bacteria Trace 08/28/18 18:00: WBC 2.8 L, RBC 4.40, Hgb 13.2, Hct 38.8, MCV 88.1, MCH 30.0, MCHC 34.1, RDW 13.8, Plt Count 114 L, MPV 7.4, Neut % (Auto) 81.7 H, Lymph % (Auto) 11.5, [place] % (Auto) 5.7, Eos % (Auto) 0.6, Baso % (Auto) 0.5, Neut # (Auto) 2.3, Lymph # (Auto) 0.3 L, [place] # (Auto) 0.2, Eos # (Auto) 0.0, Baso # (Auto) 0.0 08/28/18 18:00: Sodium 140, Potassium 3.6, Chloride 106, Carbon Dioxide 26, Anion Gap 11.6, BUN 26 H, Creatinine 0.97, Estimated Creat Clear 84, Estimated GFR 59, Est GFR ( Amer) 71, Glucose 111 H, Calcium 8.5, Total Bilirubin 0.5, AST 14 L, ALT 28, Alkaline Phosphatase 80, Total Protein 7.5, Albumin 3.5, Globulin 4.0 H, Albumin/Globulin Ratio 0.9 L, Amylase 39, Lipase 122 08/28/18 18:30: Lactate 0.9 08/29/18 06:12: WBC 2.7 L, RBC 3.94 L, Hgb 12.1 L, Hct 34.2 L, MCV 86.8, MCH 30.8, MCHC 35.5 H, RDW 13.7, Plt Count 91 L, MPV 7.4, Neut % (Auto) 79.9, Lymph % (Auto) 14.0, [place] % (Auto) 5.2, Eos % (Auto) 0.6, Baso % (Auto) 0.4, Neut # (Auto) 2.1, Lymph # (Auto) 0.4 L, [place] # (Auto) 0.1, Eos # (Auto) 0.0, Baso # (Auto) 0.0 I & O for Last 24 hours: Intake & Output 08/27/18 08/28/18 08/29/18 08/30/18 11:59 11:59 11:59 11:59 Intake Total 1431 / 1431 1388 / 1388 Balance 1431 / 1431 1388 / 1388 Weight 175 lb Internal Medicine - CN: Reslt - Labs CBC & Chem 7: 08/29/18 06:12 08/28/18 18:00 Labs: Short CBC 08/28/18 08/29/18 Range/Units 18:0
--- NOTE | 2018-08-29 16:52 | P.CONS_ITS ---
*Admission Date: 08/28/18 *History of present illness: 58 yo wf presents to ed last night with rlq abdl pain. ct of abd/pelvis done demonstrating mild splenomegaly with nodules. comparison from 2006 demonstrated similar lesions. of note her wbc and plts were low- wbc 2.6 and plts were 100. reviewed labs from pcp 1 year ago and labs were normal. she had ct of chest demonstrated mostly stable pulm nodules- there was 1 new noted and recommendation is to repeat ct in 6 months. pt reports she has had temp of 100 and has had shaking chills. denies n/v/diarrhea. reports headache today. she would like to go home. [facility] History Medical History: Denies:: Diabetes Mellitus Type 1, Diabetes Mellitus Type 2 *Have you ever received a pneumonia vaccine?: No *Have you received a flu vaccine this season?: Yes Other Surgeries: Yes: Hysterectomy-Partial ( THEY LEFT AN OVARY. ) - *Social History Educational Level: Completed College Smoking Status: Former smoker Tobacco Type: cigarettes # Packs/Day (cigarettes): 1 #Yrs smoked (if former smoker): 4 Alcohol Intake: never Alcohol Intake Frequency:: holidays/special occasions only *Occupational Status:: employed Housing: house Household Members: spouse *Travel in the last 8 weeks: Inside the [place] - Psychiatric History Expresses thoughts of harming self/others: None Suicide Plan Description: No Plan Family Hx:: Non-contributory Meds Home Medications Medication Instructions Recorded Confirmed Type Estrogens, Conjugated [Premarin] 0.625 mg PO DAILY 08/28/18 08/28/18 History Meloxicam 7.5 mg PO DAILYP PRN 08/28/18 08/29/18 History Tizanidine HCl [Tizanidine HCl 2 mg PO HSP PRN 08/28/18 08/29/18 History 2mg] buPROPion HCl [Bupropion Xl] 300 mg PO DAILY 08/29/18 08/29/18 History Allergies Allergy/AdvReac Type Severity Reaction Status Date / Time No Known Allergies Allergy Unverified 04/03/17 14:23 Exam Vital signs and Labs for Last 24 Hours: Temp Pulse Resp BP Pulse Ox 97.6 F 73 16 153/98 H 97 08/29/18 08:00 08/29/18 08:00 08/29/18 08:00 08/29/18 08:00 08/29/18 09:00 Laboratory Results - last 24 hr 08/28/18 17:28: Urine Color Yellow, Urine Appearance Clear, Urine pH 6.5, Ur Specific [place] 1.020, Urine Protein Negative, Urine Glucose (UA) Negative, Urine Ketones Negative, Urine Blood Negative, Urine Nitrate Negative, Urine Bilirubin Negative, Urine Urobilinogen 0.2, Ur Leukocyte Esterase Negative, Urine WBC Occasional, Ur Squamous Epith Cells Occasional, Urine Bacteria Trace 08/28/18 18:00: WBC 2.8 L, RBC 4.40, Hgb 13.2, Hct 38.8, MCV 88.1, MCH 30.0, MCHC 34.1, RDW 13.8, Plt Count 114 L, MPV 7.4, Neut % (Auto) 81.7 H, Lymph % (Auto) 11.5, [place] % (Auto) 5.7, Eos % (Auto) 0.6, Baso % (Auto) 0.5, Neut # (Auto) 2.3, Lymph # (Auto) 0.3 L, [place] # (Auto) 0.2, Eos # (Auto) 0.0, Baso # (Auto) 0.0 08/28/18 18:00: Sodium 140, Potassium 3.6, Chloride 106, Carbon Dioxide 26, Anion Gap 11.6, BUN 26 H, Creatinine 0.97, Estimated Creat Clear 84, Estimated GFR 59, Est GFR ( Amer) 71, Glucose 111 H, Calcium 8.5, Total Bilirubin 0.5, AST 14 L, ALT 28, Alkaline Phosphatase 80, Total Protein 7.5, Albumin 3.5, Globulin 4.0 H, Albumin/Globulin Ratio 0.9 L, Amylase 39, Lipase 122 08/28/18 18:30: Lactate 0.9 08/29/18 06:12: WBC 2.7 L, RBC 3.94 L, Hgb 12.1 L, Hct 34.2 L, MCV 86.8, MCH 30.8, MCHC 35.5 H, RDW 13.7, Plt Count 91 L, MPV 7.4,
--- NOTE | 2018-08-29 17:20 | PC.NURSE ---
called and left message with patient daughter that patient forgot blanket on floor. instructed would have it over on the [facility] floor with a extension supervisor it
--- NOTE | 2018-08-29 17:32 | HMH.DCSUM ---
General - General Admission date:: 08/28/18 Discharge date: 08/29/18 HPI HPI: 58 year old female with no significant medical history presented to the ED with RLQ pain that has increased in intensity over the last 4 days. Reports nausea, no vomiting or diarrhea. No fevers, but has had some chills. Denies urinary symptoms. No recent illnesses. She is UTD on mammogram and had a colonoscopy approx 4 years ago with polyps removed, but they were nothing. Denies rectal bleeding. In the ED she was found to have leukopenia at 2.8 and thrombocytopenia at 114 which is a new issue for her. 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 Patient was admitted for surgery and hematology consults and further evaluation. Today, patient reports persistent RLQ pain that worsens when she lays on her right side. + nausea, denies vomiting or diarrhea. Prior to this week she has felt well with no constitutional or hematological symptoms. She has a 1st cousin with blood cancer otherwise no significant family history. Hospital Course Hospital Course: Patient was admitted and CT scan of the abd/pelvis was repeated with contrast which once again showed splenic lesions and splenomegaly, negative for appendicitis. Previous scans reviewed which showed splenic lesions were present in 2006. CT chest obtained which showed stable nodules with recommendation to repeat in 6 months. Hematology was consulted who did not feel CBC abnormalities were related to a metastatic process. Recommends to recheck CBC in one week. Patient's pain has improved. She is tolerating oral intake well and desires to go home. Discharge home. Fu with PCP in one week with CBC at that time. Of note, b/p was elevated 140-150/80-90 during her admission and should be re-evaluated in outpatient setting. Objective Vital signs: Temp Pulse Resp BP Pulse Ox 97.7 F 82 16 152/98 H 98 08/29/18 16:00 08/29/18 16:00 08/29/18 16:00 08/29/18 16:00 08/29/18 16:00 Narrative: See H&P from this morning Results Labs on day of discharge: Labs from last 24 hours 08/29/18 08/28/18 08/28/18 06:12 18:30 18:00 WBC 2.7 L RBC 3.94 L Hgb 12.1 L Hct 34.2 L MCV 86.8 MCH 30.8 MCHC 35.5 H RDW 13.7 Plt Count 91 L MPV 7.4 Neut % (Auto) 79.9 Lymph % (Auto) 14.0 [place] % (Auto) 5.2 Eos % (Auto) 0.6 Baso % (Auto) 0.4 Neut # (Auto) 2.1 Lymph # (Auto) 0.4 L [place] # (Auto) 0.1 Eos # (Auto) 0.0 Baso # (Auto) 0.0 Sodium 140 Potassium 3.6 Chloride 106 Carbon Dioxide 26 Anion Gap 11.6 BUN 26 H Creatinine 0.97 Estimated Creat Clear 84 Estimated GFR 59 Est GFR ( Amer) 71 Glucose 111 H Lactate 0.9 Calcium 8.5 Total Bilirubin 0.5 AST 14 L ALT 28 Alkaline Phosphatase 80 Total Protein 7.5 Albumin 3.5 Globulin 4.0 H Albumin/Globulin Ratio 0.9 L Amylase 39 Lipase 122 Urine Color Urine Appearance Urine pH Ur Specific [place] Urine Protein Urine Glucose (UA) Urine Ketones Urine Blood Urine Nitrate Urine Bilirubin Urine Urobilinogen Ur Leukocyte Esterase Urine WBC Ur Squamous Epith Cells Urine Bacteria 08/28/18 08/28/18 18:00 17:28 WBC 2.8 L RBC 4.40 Hgb 13.2 Hct 38.8 MCV 88.1 MCH 30.0 MCHC 34.1 RDW 13.8 Plt Count 114 L MPV 7.4 Neut % (Auto) 81.7 H Lymph % (Auto) 11.5 [place] % (Auto) 5.7 Eos % (Auto) 0.6 Baso % (Auto) 0.5 Neut # (Auto) 2.3 Lymph # (Auto) 0.3 L [place] # (Auto) 0.2 Eos # (Auto) 0.0 Baso # (Auto) 0.0 Sodium Potassium Chloride Carbon Dioxide Anion Gap BUN Creatinine Estimated Creat Clear Estimated GFR Est GFR ( Amer) Glucose Lactate Calcium Total Bilirubin AST ALT Alkaline Phosphatase Total Protein Albumin Globulin Albumin/Globulin Ratio [place]
--- NOTE | 2018-08-29 17:39 | P.DS_ITS ---
General - General Admission date:: 08/28/18 Discharge date: 08/29/18 HPI HPI: 58 year old female with no significant medical history presented to the ED with RLQ pain that has increased in intensity over the last 4 days. Reports nausea, no vomiting or diarrhea. No fevers, but has had some chills. Denies urinary symptoms. No recent illnesses. She is UTD on mammogram and had a colonoscopy approx 4 years ago with polyps removed, but they were nothing. Denies rectal bleeding. In the ED she was found to have leukopenia at 2.8 and thrombocytopenia at 114 which is a new issue for her. 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 Patient was admitted for surgery and hematology consults and further evaluation. Today, patient reports persistent RLQ pain that worsens when she lays on her right side. + nausea, denies vomiting or diarrhea. Prior to this week she has felt well with no constitutional or hematological symptoms. She has a 1st cousin with blood cancer otherwise no significant family history. Hospital Course Hospital Course: Patient was admitted and CT scan of the abd/pelvis was repeated with contrast which once again showed splenic lesions and splenomegaly, negative for appendicitis. Previous scans reviewed which showed splenic lesions were present in 2006. CT chest obtained which showed stable nodules with recommendation to repeat in 6 months. Hematology was consulted who did not feel CBC abnormalities were related to a metastatic process. Recommends to recheck CBC in one week. Patient's pain has improved. She is tolerating oral intake well and desires to go home. Discharge home. Fu with PCP in one week with CBC at that time. Of note, b/p was elevated 140-150/80-90 during her admission and should be re-evaluated in outpatient setting. Objective Vital signs: Temp Pulse Resp BP Pulse Ox 97.7 F 82 16 152/98 H 98 08/29/18 16:00 08/29/18 16:00 08/29/18 16:00 08/29/18 16:00 08/29/18 16:00 Narrative: See H&P from this morning Results Labs on day of discharge: Labs from last 24 hours 08/29/18 08/28/18 08/28/18 06:12 18:30 18:00 WBC 2.7 L RBC 3.94 L Hgb 12.1 L Hct 34.2 L MCV 86.8 MCH 30.8 MCHC 35.5 H RDW 13.7 Plt Count 91 L MPV 7.4 Neut % (Auto) 79.9 Lymph % (Auto) 14.0 [place] % (Auto) 5.2 Eos % (Auto) 0.6 Baso % (Auto) 0.4 Neut # (Auto) 2.1 Lymph # (Auto) 0.4 L [place] # (Auto) 0.1 Eos # (Auto) 0.0 Baso # (Auto) 0.0 Sodium 140 Potassium 3.6 Chloride 106 Carbon Dioxide 26 Anion Gap 11.6 BUN 26 H Creatinine 0.97 Estimated Creat Clear 84 Estimated GFR 59 Est GFR ( Amer) 71 Glucose 111 H Lactate 0.9 Calcium 8.5 Total Bilirubin 0.5 AST 14 L ALT 28 Alkaline Phosphatase 80 Total Protein 7.5 Albumin 3.5 Globulin 4.0 H Albumin/Globulin Ratio 0.9 L Amylase 39 Lipase 122 Urine Color Urine Appearance Urine pH Ur Specific [place] Urine Protein Urine Gluco
[2018-08-30 20:41] LABS: Peripheral Smear Review Scanned Result
== END 2018-08-29 17:10 | disposition home or self-care (01) ==
LOC: ER 20:40 → ICU 20:50
PROVIDERS: Admitting Provider Emergency Medicine; Emergency Provider Emergency Medicine; PCP Nurse Practitioner Family; Visit Provider Internal Medicine Adolescent Medicine
DX: R10.31 Right lower quadrant pain (principal); D73.9 Disease of spleen, unspecified; R16.1 Splenomegaly, not elsewhere classified; D75.9 Disease of blood and blood-forming organs, unspecified; D69.6 Thrombocytopenia, unspecified; D72.819 Decreased white blood cell count, unspecified; R11.0 Nausea; R91.8 Other nonspecific abnormal finding of lung field; Z80.7 Family history of other malignant neoplasms of lymphoid, hematopoietic and related tissues; Z90.710 Acquired absence of both cervix and uterus; Z79.818 Long term (current) use of other agents affecting estrogen receptors and estrogen levels; Z79.899 Other long term (current) drug therapy; Z86.010 Personal history of colon polyps; Z87.891 Personal history of nicotine dependence
CPT/HCPCS: 36415; 71260; 74177; 80053; 81001; 82150; 83605; 83690; 85025; 87040; 96365; 96375; 99284; G0378; J2405; Q9967